=== PATIENT | female | born 1985 | race Two or more races ===

== ENCOUNTER 2018-09-20 21:32 | Emergency (ER) | payer OTHER ==
[~2018-09-20] VITALS: Ht 154.9 cm; Wt 51.3 kg
[2018-09-20 21:36] VITALS: BP 111/76
[2018-09-20] MEDS ORDERED: IBUPROFEN 600 MG TABLET PO ONE ×2 (22:21→22:30)
--- NOTE | 2018-09-20 23:18 | NUR ---
Patient discharged to home in stable condition. Written and verbal after care instructions given. Patient verbalizes understanding of instruction.
== END 2018-09-20 23:17 | disposition home or self-care (01) ==
LOC: ER 21:36
DX: S16.1XXA Strain of muscle, fascia and tendon at neck level, initial encounter (principal); Z91.018 Allergy to other foods; V49.59XA Passenger injured in collision with other motor vehicles in traffic accident, initial encounter; Y93.89 Activity, other specified; Y92.413 State road as the place of occurrence of the external cause; Y99.8 Other external cause status
CPT/HCPCS: 72050; 99283; A4606